=== PATIENT | male | born 1960 | race Caucasian/White ===

== ENCOUNTER 2019-01-19 11:00 | Emergency (ER) | payer OTHER ==
[2019-01-19 11:50] LABS: BASOPHILS % (AUTO) 0.2 %; EOSINOPHILS # (AUTO) 0.3 10^3/uL (0.0-0.7); EOSINOPHILS % (AUTO) 2.9 %; HGB - HEMOGLOBIN 17.2 g/dL (14.0-18.0); LYMPHOCYTES # (AUTO) 0.5 10^3/uL (1.5-3.5); MEAN CORPUSCULAR HEMOGLOBIN 30.5 pg (27.0-31.0); MEAN CORPUSCULAR HGB CONC 34.4 g/dL (32.0-36.0); MEAN CORPUSCULAR VOLUME 88.7 fL (80.0-94.0); MEAN PLATELET VOLUME 9.7 fL (7.4-11.4); MONOCYTES # (AUTO) 0.7 10^3/uL (0.0-1.0); MONOCYTES % (AUTO) 6.8 %; NEUTROPHILS # (AUTO) 9.1 10^3/uL (1.5-6.6); NEUTROPHILS % (AUTO) 84.5 %; PLT - PLATELET COUNT 227 10^3/uL (130-450); RED BLOOD COUNT 5.64 10^6/uL (4.70-6.10); WHITE BLOOD COUNT 10.7 x10^3/uL (4.8-10.8)
[2019-01-19 11:57] LABS: GLUCOSE, URINE (UA) NEGATIVE (NEGATIVE); KETONES,URINE (UA) NEGATIVE (NEGATIVE); LEUKOCYTE ESTERASE, URINE NEGATIVE (NEGATIVE); NITRITE,URINE NEGATIVE (NEGATIVE); OCCULT BLOOD,URINE TRACE-LYSE (NEGATIVE); PROTEIN,URINE 30 mg/dL (NEGATIVE); UROBILINOGEN,URINE 0.2 (NORMAL) E.U./dL (NORMAL)
[2019-01-19 12:00] LABS: CLARITY,URINE CLEAR (CLEAR)
[2019-01-19 12:03] LABS: BILIRUBIN,URINE SMALL (NEGATIVE); ICTOTEST,URINE POSITIVE
--- NOTE | 2019-01-19 12:03 | ED Physician Documentation ---
History of Present Illness - Stated complaint Stated Complaint: ABD PX/VOMITING - Chief complaint Chief Complaint: Abd Pain - Additonal information Additional information: This is a 58-year-old Male with a history of CAD status post PCI, who presents with diffuse abdominal migratory cramping, nausea and vomiting for 2 days. Patient ate a crab bisque on Sunday, on Sunday he began feeling some crampy migratory abdominal discomfort followed by multiple episodes of nonbloody, nonbilious vomiting and around 6 episodes daily of watery, nonbloody stool. Symptoms have progressed and he feels like he is getting dehydrated, so he presented to the emergency department. Some of his family members ate this food as well and they did not get sick. Patient denies other obvious inciting events or foods. He denies pain that settles in one part of his abdomen, instead states that it moves around. No chest pain or shortness of breath, no fever. Review of Systems Constitutional: denies: Fever Eyes: denies: Loss of vision Nose: denies: Rhinorrhea / runny nose Throat: denies: Oral lesions / sores Cardiac: denies: Chest pain / pressure Respiratory: denies: Dyspnea GI: reports: Abdominal Pain, Nausea, Vomiting : denies: Dysuria Skin: denies: Rash Neurologic: denies: Syncope Immunocompromised: denies: Immunocompromised PD PAST MEDICAL HISTORY - Past Medical History Cardiovascular: Other (PCI for CAD) - Present Medications Home Medications: Ambulatory Orders Medication Instructions Recorded Confirmed Ondansetron Odt [Zofran] 4 mg TL Q6H PRN #14 tablet 01/19/19 - Allergies Allergies/Adverse Reactions: Allergies Allergy/AdvReac Type Severity Reaction Status Date / Time No Known Drug Allergies Allergy Verified 01/19/19 11:18 PD ED PE NORMAL - Vitals Vital signs reviewed: Yes - General General: Alert and oriented X 3, No acute distress - HEENT HEENT: PERRL - Neck Neck: Supple, no meningeal sign - Cardiac Cardiac: RRR, No murmur - Respiratory Respiratory: Clear bilaterally - Abdomen Abdomen: Other (Mildly distended, with slight mild tenderness to palpation more notable in the left lateral quadrant. No significant right upper quadrant or right lower quadrant tenderness. Negative Brothers's and psoas sign.) - Derm Derm: Warm and dry - Extremities Extremities: No deformity - Neuro Neuro: Alert and oriented X 3 - Psych Psych: Normal mood, Normal affect Results - Vitals Vitals: Vital Signs - 24 hr 01/19/19 01/19/19 01/19/19 11:15 14:52 16:26 Temperature 36.4 C L 37.3 C Heart Rate 109 H 88 90 Respiratory 16 20 14 Rate Blood Pressure 111/75 118/72 96/68 O2 Saturation 98 97 97 Oxygen O2 Source Room air - Labs Labs: Laboratory Tests 01/19/19 01/19/19 01/19/19 11:35 11:42 11:42 WBC 10.7 RBC 5.64 Hgb 17.2 Hct 50.0 MCV 88.7 MCH 30.5 MCHC 34.4 RDW 13.0 Plt Count 227 MPV 9.7 Neut # (Auto) 9.1 H Lymph # (Auto) 0.5 L [place] # (Auto) 0.7 Eos # (Auto) 0.3 Baso # (Auto) 0.0 Absolute Nucleated RBC 0.00 Nucleated RBC % 0.0 Sodium 135 Potassium 3.7 Chloride 98 L Carbon Dioxide 20 L Anion Gap 17.0 H BUN 26 H Creatinine 1.7 H Estimated GFR (MDRD) 42 L Glucose 144 H Calcium 9.0 Total Bilirubin 1.1 H AST 39 ALT 88 H Alkaline Phosphatase 69 Total Protein 8.6 H Albumin 4.7 Globulin 3.9 Albumin/Globulin Ratio 1.2 Lipase 22 Urine Color YELLOW Urine Clarity CLEAR Urine pH 6.0 Ur Specific Aubrey 1.025 Urine Protein 30 H Urine Glucose (UA) NEGATIVE Urine Ketones NEGATIVE Urine Occult Blood TRACE-LYSE Urine Nitrite NEGATIVE Urine Bilirubin SMALL H Urine Urobilinogen 0.2 (NORMAL) Ur Leukocyte Esterase NEGATIVE Urine RBC 0-5 Urine WBC 0-3 Ur Squamous Epith Cells FEW Squamous Urine Bacteria Rare Urine Casts 3-5 Course Granular Urine Mucus Moderate Strands Ur Microscopic Review INDICATED Urine Culture Comments NOT INDICATED PD MEDICAL DECISION MAKING - ED course Complexity details: considered differential (Electrolyte disturbance, gastroenteritis, PUD, appendicitis, ELMA, food poinsoning, pancreatitis) ED course: Initially patient is non-toxic appearing but tachycardic. His abdominal exam is benign with very mild diffuse tenderness. IV inserted, patient was given 2 L NS bolus and zofran follow by omkar for nausea. CBC unremarkable, CMP notable for creatinine of 1.7, which appears to be an ELMA, likely from dehydration. UA negative for infection. He has a very mild ALT elevation but no specific RUQ tenderness. On repeat evaluation patient is well-appearing, tolerating p.o., his vital signs are unremarkable with a normal heart rate. His abdomen is benign and given his benign exam, labs, and history appendicitis or other acute abdominal pathology is highly unlikely. He likely has a viral gastroenteritis. I prescribed zofran and discussed supportive care in depth. I discussed return precuations including blood in the stool, inability to tolerate fluids despite the medications, or new or worsening abdominal pain. Patient will also follow up with PCP in 3 days for repeat CMP to check his ALT and creatinine, which were both mildly elevated. Departure - Departure Disposition: 01 Home, Self Care Clinical Impression: Gastroenteritis Condition: Stable Instructions: Vomit Diarrhea Self Care Prescriptions: Ondansetron Odt [Zofran] 4 mg TL Q6H PRN #14 tablet PRN Reason: Nausea / Vomiting Comments: You were seen today for nausea and vomiting as well as diarrhea, it appears he likely have a intestinal infection. It is important that you stay hydrated, drink plenty of fluids and take the nausea medication as prescribed. If you have blood in your stool, persistent vomiting despite nausea medications or worsening abdominal pain return to emergency department. Follow-up with your primary care provider in 3 days for a recheck of your creatinine and your liver function tests. Your ALT was slightly elevated at 88. Discharge Date/Time: 01/19/19 16:26
[2019-01-19 12:18] LABS: ALBUMIN 4.7 g/dL (3.2-5.5); ALBUMIN/GLOBULIN RATIO 1.2 (1.0-2.2); BILIRUBIN,TOTAL 1.1 mg/dL (0.2-1.0); CREATININE 1.7 mg/dL (0.6-1.2); TOTAL PROTEIN 8.6 g/dL (6.7-8.2)
[2019-01-19 12:25] LABS: BACTERIA,URINE Rare /HPF (None Seen); MUCUS,URINE Moderate Strands; RBC,URINE 0-5 /HPF (0-5); SQUAMOUS EPITHELIAL CELL,UR FEW Squamous (<= Few)
[2019-01-19 12:26] LABS: CASTS, URINE 3-5 Course Granular /LPF
[2019-01-19] MEDS ORDERED: SODIUM CHLORIDE 0.9% 1,000 ML IV ONE ×2 (12:36→12:54)
[2019-01-19] MEDS ORDERED: ONDANSETRON 4 MG/2 ML VIAL IVP STA (12:54)
[2019-01-19] MEDS ORDERED: METOCLOPRAMIDE 10 MG/2 ML VIAL IVP STA (14:53)
[2019-01-19 16:28] VITALS: BP 96/68
== END 2019-01-19 16:26 | disposition home or self-care (01) ==
LOC: ED 11:00
DX: K52.9 Noninfective gastroenteritis and colitis, unspecified (principal)
CPT/HCPCS: 36415; 80053; 81001; 83690; 85025; 96361; 96374; 96375; 99283; 99284; J2765; 81003; 87086

== ENCOUNTER 2020-08-01 17:36 | Emergency (ER) | payer OTHER ==
[2020-08-01 17:53] LABS: BASOPHILS % (AUTO) 0.2 %; EOSINOPHILS % (AUTO) 0.5 %; LYMPHOCYTES # (AUTO) 1.9 10^3/uL (1.5-3.5); LYMPHOCYTES % (AUTO) 23.3 %; MEAN CORPUSCULAR HEMOGLOBIN 30.8 pg (27.0-31.0); MEAN CORPUSCULAR HGB CONC 33.4 g/dL (32.0-36.0); MEAN CORPUSCULAR VOLUME 92.3 fL (80.0-94.0); MEAN PLATELET VOLUME 9.7 fL (7.4-11.4); MONOCYTES # (AUTO) 0.4 10^3/uL (0.0-1.0); MONOCYTES % (AUTO) 5.3 %; NEUTROPHILS # (AUTO) 5.7 10^3/uL (1.5-6.6); PLT - PLATELET COUNT 247 10^3/uL (130-450); RED BLOOD COUNT 5.19 10^6/uL (4.70-6.10); RED CELL DISTRIBUTION WIDTH 12.3 % (12.0-15.0); WHITE BLOOD COUNT 8.2 x10^3/uL (4.8-10.8)
--- NOTE | 2020-08-01 17:58 | ED Physician Documentation ---
History of Present Illness - Stated complaint Stated Complaint: CHEST PX - Chief complaint Chief Complaint: Cardiac - Additonal information Additional information: 60-year-old male presents the emergency department for evaluation of chest pain. He reports that 4 days ago he began having pain in his right jaw that radiated to his neck however today he began having substernal chest pain and pressure with radiation to the back. Positive nausea no vomiting. He does have a history of stent placement in his LAD at [facility] in [place] about 18 months ago. Patient reports that over the last hour he has taken 3 sublingual nitroglycerin tablets and is now beginning to feel relief of the chest pain pressure. Patient denies that the chest pain is exertional. In fact he walked a very steep hill yesterday to see if it made it worse and it did not. However he reports that for the last few mornings he has been noticing palpitations or double beats when he wakes up. He is never had this before Past medical history: Coronary artery disease hypertension Social: No tobacco positive EtOH Meds: Metoprolol, aspirin, atorvastatin, as needed nitroglycerin. Review of Systems Constitutional: denies: Fever, Chills Eyes: reports: Reviewed and negative Ears: reports: Reviewed and negative Nose: reports: Reviewed and negative Throat: reports: Reviewed and negative Cardiac: reports: Chest pain / pressure, Palpitations. denies: Pedal edema, Calf pain Respiratory: denies: Dyspnea, Cough GI: reports: Nausea. denies: Abdominal Pain, Vomiting, Constipation, Diarrhea : denies: Dysuria Skin: denies: Rash, Lesions Musculoskeletal: reports: Neck pain PD PAST MEDICAL HISTORY - Past Medical History Cardiovascular: Other (PCI for CAD) Respiratory: None Neuro: None Endocrine/Autoimmune: None GI: GERD : None HEENT: None Psych: None Musculoskeletal: None Derm: None - Past Surgical History Past Surgical History: Yes Cardiovascular: Coronary stent Derm: Skin cancer surgery - Present Medications Home Medications: Ambulatory Orders Medication Instructions Recorded Confirmed Aspirin [Aspirin EC] 81 mg PO DAILY 08/01/20 08/01/20 Atorvastatin Calcium [Lipitor] 80 mg PO DAILY 08/01/20 08/01/20 Metoprolol Succinate [Toprol Xl] 25 mg PO DAILY 08/01/20 08/01/20 Nitroglycerin [Nitrostat] 0.4 mg SL Q5MIN PRN 08/01/20 08/01/20 - Allergies Allergies/Adverse Reactions: Allergies Allergy/AdvReac Type Severity Reaction Status Date / Time No Known Drug Allergies Allergy Verified 08/01/20 17:38 - Social History Does the pt smoke?: No Smoking Status: Never smoker Does the pt drink ETOH?: Yes Does the pt have substance abuse?: No PD ED PE EXPANDED - General General: Alert, Anxious - Neck Neck: Supple w/out meningeal sx. No: JVD present, Adenopathy - Cardiac Cardiac: Regular Rate, Regular Rhythm, Radial strong equal, Cap refill < 2 sec - Respiratory Respiratory: Clear to ausultation alex. No: Distress, Labored - Abdomen Abdomen: Normal Bowel sounds. No: Tender to palpation - Back Back: Normal exam. No: Vertebral tenderness, Soft tissue tenderness - Neuro Neuro: Alert and Oriented X 3, CNII-XII intact, Normal speech. No: CN deficit - GCS Eye Opening: Spontaneous Motor: Obeys Commands Verbal: Oriented Total: 15 Results - Vitals Vitals: Vital Signs - 24 hr 08/01/20 08/01/20 08/01/20 17:38 17:50 18:09 Temperature 36.3 C L 37 C Heart Rate 82 71 71 Respiratory 18 16 14 Rate Blood Pressure 132/83 H 137/84 H 122/79 O2 Saturation 98 98 97 08/01/20 20:00 Temperature Heart Rate 64 Respiratory 14 Rate Blood Pressure 128/89 H O2 Saturation 97 Oxygen O2 Source Room air - EKG (time done) 1740 Rate: Rate (enter#) (70) Rhythm: NSR [place]: Normal Intervals: Normal PA QRS: Poor R wave progression Ischemia: Normal ST segments Compare to prior EKG: Old EKG unavailable Computer interpretation: Agree with computer - Labs Labs: Laboratory Tests 08/01/20 08/01/20 08/01/20 17:50 17:50 17:50 WBC 8.2 RBC 5.19 Hgb 16.0 Hct 47.9 MCV 92.3 MCH 30.8 MCHC 33.4 RDW 12.3 Plt Count 247 MPV 9.7 Neut # (Auto) 5.7 Lymph # (Auto) 1.9 Frio # (Auto) 0.4 Eos # (Auto) 0.0 Baso # (Auto) 0.0 Absolute Nucleated RBC 0.00 Nucleated RBC % 0.0 Sodium 138 Potassium 3.8 Chloride 96 L Carbon Dioxide 27 Anion Gap 15.0 H BUN 22 H Creatinine 1.0 Estimated GFR (MDRD) 77 L Glucose 117 H Calcium 10.4 H Total Bilirubin 1.0 AST 27 ALT 36 Alkaline Phosphatase 67 Troponin I High Sens < 2.3 L Total Protein 8.0 Albumin 4.5 Globulin 3.5 Albumin/Globulin Ratio 1.3 Lipase 27 08/01/20 19:43 WBC RBC Hgb Hct MCV MCH MCHC RDW Plt Count MPV Neut # (Auto) Lymph # (Auto) Frio # (Auto) Eos # (Auto) Baso # (Auto) Absolute Nucleated RBC Nucleated RBC % Sodium Potassium Chloride Carbon Dioxide Anion Gap BUN Creatinine Estimated GFR (MDRD) Glucose Calcium Total Bilirubin AST ALT Alkaline Phosphatase Troponin I High Sens < 2.3 L Total Protein Albumin Globulin Albumin/Globulin Ratio Lipase - Rads (name of study) CXR Radiology: Final report received (No acute cardiopulmonary process) PD MEDICAL DECISION MAKING - ED course Complexity details: reviewed results, re-evaluated patient, considered differential ED course: 60-year-old male presents the emergency department with 3 to 4 days of right jaw pain that radiates to the neck as well as substernal chest pain and pressure that began this afternoon. Does have a history of LAD stent placement about 18 months ago at the [facility] in [place]. He is compliant with his aspirin, atorvastatin and metoprolol. He did take 3 nitroglycerin prior to arrival in the emergency department and by the time he arrived here his chest pain had nearly fully abated. His EKG showed sinus rhythm without ischemic changes. High-sensitivity troponin was negative. A 2-hour repeat troponin was also negative. Screening CBC and electrolytes also unremarkable. Chest x-ray did not show any acute focal pathology. Patient did discuss with provider is concerned that he has been feeling palpitations especially in the morning which she described as couple lidded beats. While discussing this concern with him I did note bigeminal PVCs occasionally. Patient at this time is pain-free. I encouraged him to have very close follow- up with his primary care provider in [place] as well as cardiology at [facility]. He is told that if he has any recurrence of the chest pain that does not resolve with 1 or 2 tablets of nitroglycerin to go immediately to the ER. Departure - Departure Disposition: 01 Home, Self Care Clinical Impression: Chest pain Qualifiers: Chest pain type: unspecified Qualified Code(s): R07.9 - Chest pain, unspecified Condition: Stable Record reviewed to determine appropriate education?: Yes Instructions: Angina Dc Comments: Kody you were seen in the emergency department today for chest pain. Your screening EKG was not ischemic. Your labs including 2 serial troponins were negative for ischemia. However the fact that the chest pain improved after 2-3 doses of nitroglycerin suggests angina. It is very important that you follow-up with your primary care doctor in [place] this week to discuss your chest pain. Is also very important that you discuss your chest pain with your frame trimmer at the [facility]. You should have a repeat stress test and echocardiogram. If your chest pain returns in any way, please return immediately to the emergency department.
[2020-08-01 18:12] LABS: ALBUMIN 4.5 g/dL (3.2-5.5); ALBUMIN/GLOBULIN RATIO 1.3 (1.0-2.2); CALCIUM 10.4 mg/dL (8.5-10.3)
--- NOTE | 2020-08-01 18:13 | XRAY Report ---
PROCEDURE: Chest 1 View X-Ray INDICATIONS: Chest Pain TECHNIQUE: One view of the chest was acquired. COMPARISON: None. FINDINGS: Surgical changes and devices: None. Lungs and pleura: No pleural effusions or pneumothorax. Lungs are clear. Mediastinum: Mediastinal contours appear normal. Heart size is normal. Bones and chest wall: No suspicious bony lesions. Overlying soft tissues appear unremarkable. IMPRESSION: Chest without acute cardiopulmonary abnormalities. No focal airspace disease. Reviewed by: Larry Slade MD on 08/01/2020 6:11 PM [facility] Approved by: Larry Slade MD on 08/01/2020 6:11 PM [facility] Station ID: [id number]
[2020-08-01] MEDS ORDERED: MORPHINE 2 MG/ML CARPUJECT IVP STA (18:20)
[2020-08-01 20:10] VITALS: BP 128/89
== END 2020-08-01 20:34 | disposition home or self-care (01) ==
LOC: ED 17:36
DX: R07.9 Chest pain, unspecified (principal)
CPT/HCPCS: 36415; 80053; 83690; 84484; 85025; 93005; 96374; 99284

== ENCOUNTER 2021-06-07 14:49 | Outpatient (CLI) | payer OTHER | END 2021-06-07 14:50 | disposition EMS.NT | LOC: EMS 14:49 | DX: K14.8 Other diseases of tongue (principal); R22.1 Localized swelling, mass and lump, neck ==

== ENCOUNTER 2022-06-27 22:20 | Outpatient (CLI) | payer OTHER | END 2022-06-27 22:21 | disposition EMS.NT | LOC: EMS 22:20 | DX: R00.2 Palpitations (principal) ==

== ENCOUNTER 2023-12-28 00:41 | Emergency (ER) | payer OTHER ==
--- NOTE | 2023-12-28 01:02 | ED Physician Documentation ---
PD HPI ABD PAIN - Stated complaint Stated Complaint: - Chief complaint Chief Complaint: Abd Pain - History obtained from History obtained from: Patient - Additional information Additional information: 63-year-old male with history of coronary artery disease presents by private vehicle from home for approximately 1 day of left lower quadrant abdominal pain. Patient states that 2 days ago he and his partner were "experimenting" and a kitchen utensil was inserted into his rectum. He denies pain with this activity and the object was subsequently removed. He is concerned that this incident may be related to his activities from the days before. Denies nausea, vomiting, constipation, diarrhea, changes in urination Review of Systems Constitutional: denies: Fever, Chills Cardiac: denies: Chest pain / pressure, Palpitations, Calf pain GI: reports: Abdominal Pain. denies: Nausea, Vomiting, Constipation, Diarrhea : denies: Dysuria, Frequency, Hesitancy Neurologic: denies: Generalized weakness, Focal weakness, Numbness PD PAST MEDICAL HISTORY - Past Medical History Cardiovascular: Other Respiratory: None Neuro: None Endocrine/Autoimmune: None GI: GERD : None HEENT: None Psych: None Musculoskeletal: None Derm: None - Past Surgical History Past Surgical History: Yes Cardiovascular: Coronary stent Derm: Skin cancer surgery - Present Medications Home Medications: Ambulatory Orders Medication Instructions Recorded Confirmed Aspirin [Aspirin EC] 81 mg PO DAILY 08/01/20 12/28/23 Atorvastatin Calcium [Lipitor] 80 mg PO DAILY 08/01/20 12/28/23 Metoprolol Succinate [Toprol Xl] 25 mg PO DAILY 08/01/20 12/28/23 Nitroglycerin [Nitrostat] 0.4 mg SL Q5MIN PRN 08/01/20 12/28/23 Amox/Clav 875/125 [Augmentin] 1 each PO Q12H #20 tablet 12/28/23 Amox/Clav 875/125 [Augmentin] 1 each PO Q12H #20 tablet 12/28/23 HYDROcod/ACETAM 5/325 [[place] 5/325] 1 - 2 tab PO Q6H PRN #12 tablet 12/28/23 HYDROcod/ACETAM 5/325 [[place] 5/325] 1 tab PO Q6H PRN #12 tablet 12/28/23 - Allergies Allergies/Adverse Reactions: Allergies Allergy/AdvReac Type Severity Reaction Status Date / Time No Known Drug Allergies Allergy Verified 12/28/23 00:55 - Social History Does the pt smoke?: No Smoking Status: Never smoker Does the pt drink ETOH?: Yes Does the pt have substance abuse?: No - Immunizations Immunizations are current?: Yes - POLST Patient has POLST: No PD ED PE NORMAL - Vitals Vital signs reviewed: Yes - General General: Alert and oriented X 3, No acute distress, Well developed/nourished - Cardiac Cardiac: RRR, Strong equal pulses - Abdomen Abdomen: Soft, Non distended, Other (Left lower quadrant tenderness to deep palpation without rebound or guarding) - Derm Derm: Normal color, Warm and dry, No rash - Extremities Extremities: No deformity, No tenderness to palpate, Normal ROM s pain, No edema - Neuro Neuro: Alert and oriented X 3, director mobile [employer] 2-12 intact, No motor deficit, Normal speech Results - Vitals Vitals: Vital Signs - 24 hr 12/28/23 12/28/23 00:53 02:41 Temperature 36.5 C Heart Rate 77 64 Respiratory 16 18 Rate Blood Pressure 158/91 H 120/76 O2 Saturation 97 99 Oxygen O2 Source Room air - Labs Labs: Laboratory Tests 12/28/23 12/28/23 12/28/23 01:05 01:05 02:00 WBC 6.6 RBC 5.14 Hgb 15.6 Hct 45.7 MCV 88.9 MCH 30.4 MCHC 34.1 RDW 12.9 Plt Count 218 MPV 9.6 Neut # (Auto) 4.9 Lymph # (Auto) 1.2 L Kane # (Auto) 0.5 Eos # (Auto) 0.1 Baso # (Auto) 0.0 Absolute Nucleated RBC 0.00 Nucleated RBC % 0.0 Sodium 138 Potassium 3.5 Chloride 105 Carbon Dioxide 25 Anion Gap 8.0 BUN 18 Creatinine 1.0 Estimated GFR (MDRD) 76 L Glucose 117 H Calcium 9.4 Total Bilirubin 0.6 AST 13 ALT 15 Alkaline Phosphatase 57 Total Protein 7.6 Albumin 4.3 Globulin 3.3 Albumin/Globulin Ratio 1.3 Urine Color DARK YELLOW Urine Clarity CLEAR Urine pH 6.0 Ur Specific Wendel >=1.030 H Urine Protein NEGATIVE Urine Glucose (UA) NEGATIVE Urine Ketones NEGATIVE Urine Occult Blood TRACE-INTA Urine Nitrite NEGATIVE Urine Bilirubin SMALL H Urine Urobilinogen 0.2 (NORMAL) Ur Leukocyte Esterase NEGATIVE Ur Microscopic Review NOT INDICATED Urine Culture Comments NOT INDICATED PD Medical Decision Making - ED course Complexity details: reviewed results, re-evaluated patient, considered differential, d/w patient ED course: 1 day of left lower quadrant abdominal pain. Abdomen is soft, he is tender in the left lower quadrant without rebound or guarding. Pain medications, laboratory work, CT imaging ordered. Laboratory work is reviewed, unremarkable. CT imaging shows mild diverticulitis. Patient reported moderate improvement in symptoms with pain medications, stated that he still felt discomfort but declined additional pain medications. He stated that his primary concern was making sure that his intestines were not harmed by the insertion of a foreign object. He states that he had a colonoscopy 2 to 3 years ago and was told that it was "normal". Patient was discharged on antibiotics and instructed to follow-up with his primary care doctor. Short course of pain medication sent to pharmacy of choice, counseled to use daily stool softener to prevent constipation and worsening of diverticulitis. Departure - Departure Disposition: 01 Home, Self Care Clinical Impression: Diverticulitis of gastrointestinal tract Instructions: ED Diverticulitis Prescriptions: Amox/Clav 875/125 [Augmentin] 1 each PO Q12H #20 tablet Amox/Clav 875/125 [Augmentin] 1 each PO Q12H #20 tablet HYDROcod/ACETAM 5/325 [[place] 5/325] 1 tab PO Q6H PRN #12 tablet PRN Reason: Pain HYDROcod/ACETAM 5/325 [[place] 5/325] 1 - 2 tab PO Q6H PRN #12 tablet PRN Reason: Pain Comments: Your CT showed mild diverticulitis in the left-hand side of your abdomen. This is likely the cause of your pain. Antibiotics and pain medications have been sent to the [facility] in [place]. Finish all of your antibiotics as prescribed even if you feel better. Be careful with the pain medications as they can cause dizziness and drowsiness. Do not take these medications with alcohol or before operating heavy machinery. They may also cause constipation, which may worsen your symptoms. Make sure to take a stool softener with the pain medications prescribed. Forms: PCP List Discharge Date/Time: 12/28/23 04:54
[2023-12-28] MEDS ORDERED: iohexoL-300 100 ML VIAL ONE (01:04)
[2023-12-28 01:18] LABS: BASOPHILS % (AUTO) 0.3 %; EOSINOPHILS # (AUTO) 0.1 10^3/uL (0.0-0.7); EOSINOPHILS % (AUTO) 0.8 %; HCT - HEMATOCRIT 45.7 % (42.0-52.0); HGB - HEMOGLOBIN 15.6 g/dL (14.0-18.0); LYMPHOCYTES # (AUTO) 1.2 10^3/uL (1.5-3.5); LYMPHOCYTES % (AUTO) 17.4 %; MEAN CORPUSCULAR HEMOGLOBIN 30.4 pg (27.0-31.0); MEAN CORPUSCULAR HGB CONC 34.1 g/dL (32.0-36.0); MEAN CORPUSCULAR VOLUME 88.9 fL (80.0-94.0); MEAN PLATELET VOLUME 9.6 fL (7.4-11.4); MONOCYTES # (AUTO) 0.5 10^3/uL (0.0-1.0); MONOCYTES % (AUTO) 7.1 %; NEUTROPHILS # (AUTO) 4.9 10^3/uL (1.5-6.6); NEUTROPHILS % (AUTO) 73.9 %; PLT - PLATELET COUNT 218 10^3/uL (130-450); RED BLOOD COUNT 5.14 10^6/uL (4.70-6.10); RED CELL DISTRIBUTION WIDTH 12.9 % (12.0-15.0); WHITE BLOOD COUNT 6.6 x10^3/uL (4.8-10.8)
[2023-12-28] MEDS: SODIUM CHLORIDE 0.9% 1,000 ML IV STA (01:19)
[2023-12-28] MEDS: MORPHINE 2 MG/ML CARPUJECT IVP STA (01:19)
[2023-12-28] MEDS: ONDANSETRON 4 MG/2 ML VIAL IVP STA (01:19)
[2023-12-28 01:44] LABS: ALBUMIN 4.3 g/dL (3.2-5.5); ALBUMIN/GLOBULIN RATIO 1.3 (1.0-2.2); BILIRUBIN,TOTAL 0.6 mg/dL (0.2-1.0); CALCIUM 9.4 mg/dL (8.5-10.3); POTASSIUM 3.5 mmol/L (3.5-4.5); TOTAL PROTEIN 7.6 g/dL (6.4-8.9)
[2023-12-28] MEDS: iohexoL-300 100 ML VIAL IVP ONE (02:09)
[2023-12-28 02:21] LABS: BILIRUBIN,URINE SMALL (NEGATIVE); GLUCOSE, URINE (UA) NEGATIVE (NEGATIVE); KETONES,URINE (UA) NEGATIVE (NEGATIVE); LEUKOCYTE ESTERASE, URINE NEGATIVE (NEGATIVE); NITRITE,URINE NEGATIVE (NEGATIVE); OCCULT BLOOD,URINE TRACE-INTA (NEGATIVE); PROTEIN,URINE NEGATIVE (NEGATIVE); UROBILINOGEN,URINE 0.2 (NORMAL) E.U./dL (NORMAL)
[2023-12-28 02:23] LABS: CLARITY,URINE CLEAR (CLEAR)
[2023-12-28] MEDS: KETOROLAC 15 MG/ML VIAL IVP STA (02:36)
[2023-12-28 02:48] VITALS: BP 120/76; O2SAT 99
[2023-12-28] MEDS ORDERED: HYDROmorphone 1 MG/ML CARPUJECT IVP STA (03:49)
[2023-12-28] MEDS ORDERED: ACETAMINOPHEN 1,000 MG/100 ML 1,000 MG/100 ML BAG IV ONE (03:49)
[2023-12-28] MEDS ORDERED: HYDROmorphone 1 MG/ML CARPUJECT ONE (03:52)
--- NOTE | 2023-12-28 09:59 | CT Report ---
PROCEDURE: Abdomen/Pelvis W INDICATIONS: LLQ PAIN, RECENT FOREIGN BODY INSERTION CONTRAST: Omni 300 TECHNIQUE: After the administration of intravenous contrast, a CT scan of the abdomen and pelvis was performed. Images were recorded and evaluated at appropriate window settings. Reformats: coronal and sagittal. F or radiation dose reduction, the following was used: automated exposure control, adjustment of mA and /or kV according to patient size. COMPARISON: None. FINDINGS: Image quality: Diagnostic. Lower chest: Unremarkable. Liver: No solid mass. There are measures 18.2 cm. Gallbladder: Unremarkable. Biliary tree: No intrahepatic or extrahepatic dilation, accounting for age. Spleen: No splenomegaly. Pancreas: No pancreatic ductal dilation. Adrenals: No adrenal nodule. Kidneys and ureters: No hydronephrosis. No renal cystic lesion which requires follow up. No solid mas s. Stomach, bowel and peritoneum: There is mild thickening with associated inflammatory change within th e distal descending/proximal sigmoid colon. Diverticula are present. No free fluid or free air. No pa thologic free fluid. Lymph nodes: No central or retroperitoneal adenopathy. Vessels: No infrarenal aortic aneurysm. Patent portal vein. PELVIS Reproductive organs: Unremarkable. Bladder: No abnormal wall thickening, accounting for underdistention. Pelvic lymph nodes: No pelvic adenopathy by size criteria. Bones: No aggressive osseous abnormality. Other: No significant ventral or inguinal hernia. IMPRESSION: Focal distal descending/proximal sigmoid colon with thickening and inflammatory change most consisten t with colitis secondary to diverticulitis. No associated abscess. The above findings are concordant with preliminary report. Reviewed by: Gracie Jarvis MD on 12/28/2023 9:58 AM PDT Approved by: Gracie Jarvis MD on 12/28/2023 9:58 AM PDT Station ID: [id number]
== END 2023-12-28 04:54 | disposition home or self-care (01) ==
LOC: ED 00:41
DX: K57.32 Diverticulitis of large intestine without perforation or abscess without bleeding (principal); I25.10 Atherosclerotic heart disease of native coronary artery without angina pectoris; Z85.828 Personal history of other malignant neoplasm of skin
CPT/HCPCS: 36415; 74177; 80053; 81003; 85025; 96374; 96375; 99283; 99284; Q9967; 81001; 87086